=== PATIENT | female | born 1965 | race Caucasian/White ===

== ENCOUNTER → 2025-01-24 08:35 | Outpatient (REF) | payer MEDICARE, BC, SELFPAY | LOC: MRI 08:35 | PROVIDERS: ATTENDING PHYSICIAN Internal Medicine Transplant Hepatology; FAMILY PHYSICIAN Nurse Practitioner Family | DX: K76.6 Portal hypertension (principal); I85.00 Esophageal varices without bleeding | CPT/HCPCS: 74183; 76391; A9575 ==